=== PATIENT | male | born 1995 | race African-American/Black ===

== ENCOUNTER 2020-10-11 13:25 | Emergency (ER) | payer OTHER ==
[~2020-10-11] VITALS: Ht 190.5 cm; Wt 79.4 kg
[2020-10-11] MEDS ORDERED: IBUPROFEN 800800 M1 PO ×2 (15:10→15:16)
[2020-10-11] MEDS ORDERED: APAP W/CODEINE1 TA2 PO ×2 (15:10→15:16)
[2020-10-11 15:20] VITALS: BP 136/72
== END 2020-10-11 15:20 | disposition home or self-care (01) ==
LOC: M.ERS 13:25
DX: M25.512 Pain in left shoulder (principal); F17.210 Nicotine dependence, cigarettes, uncomplicated; Z88.0 Allergy status to penicillin